=== PATIENT | female | born 1995 | race Caucasian/White ===

== ENCOUNTER 2019-07-05 16:39 | Emergency (ER) | payer OTHER ==
[~2019-07-05] VITALS: Ht 170.2 cm; Wt 59.0 kg
[2019-07-05] MEDS ORDERED: KEFLEX500 M2 PO (16:55)
[2019-07-05] MEDS ORDERED: ADDERALL 10 MG10 MG PO (16:55)
[2019-07-05] MEDS ORDERED: XANAX 0.5 MG0.5 MG PO (16:55)
[2019-07-05] MEDS ORDERED: LEXAPRO 10 MG T10 M2 PO (16:55)
[2019-07-05 17:43] LABS: URINE BLOOD 2+ (Negative); URINE CLARITY SL CLOUDY; URINE COLOR YELLOW; URINE GLUCOSE-RANDOM NEGATIVE (Negative); URINE KETONES 1+ (Negative); URINE LEUKOCYTES-REFLEX NEGATIVE (Negative); URINE NITRITE-REFLEX NEGATIVE (Negative); URINE PROTEIN 1+ (Negative); URINE SPECIFIC GRAVITY 1.015 (1.005-1.030)
[2019-07-05 17:45] LABS: URINE BILIRUBIN 1+ (Negative)
[2019-07-05 17:46] LABS: ICTOTEST (BILI CONFIRMATORY) Negative (Negative)
[2019-07-05 17:48] LABS: BACTERIA-REFLEX >30 Many /HPF (None Seen); SQUAMOUS >10 Many /LPF (0-3); URINE RBC 0-2 Rare /HPF (0-2); URINE WBC-REFLEX 0-5 Rare /HPF (0-5)
[2019-07-05 17:49] LABS: CASTS None Seen /LPF (None Seen); CRYSTALS None Seen /LPF (None Seen); MUCUS >6 Heavy strn/LPF (None Seen)
[2019-07-05 18:09] LABS: INFLUENZA A ANTIGEN Negative (Negative); INFLUENZA B ANTIGEN Negative (Negative)
[2019-07-05 18:31] VITALS: BP 108/64
== END 2019-07-05 18:32 | disposition home or self-care (01) ==
LOC: M.ERS 16:39
PROVIDERS: Physician Assistant
DX: J02.0 Streptococcal pharyngitis (principal)